=== PATIENT | male | born 1960 | race Caucasian/White ===

== ENCOUNTER 2016-09-17 08:57 | Day surgery (SDC) | payer MEDICAID ==
[2016-09-17 09:31] VITALS: BMI 22.2
[2016-09-17] MEDS ORDERED: Bupivacaine HCl 0.25% PF (10 ml) Inj ONE (10:29)
[2016-09-17] MEDS ORDERED: ceFAZolin 1 gm FROZEN Premix 50 ML IVPB ONE (10:29)
[2016-09-17] MEDS ORDERED: Propofol 10 mg/ml Inj (20 ML) ONE (12:18)
[2016-09-17] MEDS ORDERED: Lactated Ringer's 1,000 ML IV ONE (12:25)
[2016-09-17] MEDS ORDERED: Midazolam 2 MG/2 ML VIAL ONE (12:31)
[2016-09-17] MEDS ORDERED: Lidocaine 1% Inj (20ml) ONE (12:47)
[2016-09-17] MEDS ORDERED: Oxycodone/Acetaminophen 5/325 mg Tab PO PRN (13:26)
--- NOTE | 2016-09-17 14:02 | OP ---
PROCEDURE DATE: 09/17/2016 PREOPERATIVE DIAGNOSIS: Infected mass of right shoulder. POSTOPERATIVE DIAGNOSIS: Infected mass of right shoulder. PROCEDURE PERFORMED: Wide and deep excision of infected mass (5 cm) of right shoulder with adjacent tissue transfer closure greater than 30 cm. SURGEON: Nathan Harden MD ANESTHESIA: General endotracheal. ESTIMATED BLOOD LOSS: 25 mL. POSTOPERATIVE CONDITION: Stable. PROCEDURE: The patient taken to the operating room and placed in a prone position with the right arm extended. The right shoulder and scapular area were prepped and draped and 30 mL of local anesthesi a was administered. A generous elliptical incision was made surrounding the mass. It was dissected into the fascia and removed. Bleeding was controlled using the Bovie. A larger blood vessel was rep aired. The wound was irrigated with copious amounts of saline solution and generous tissue flaps wer e raised using the Bovie. A greater than 30 square cm adjacent tissue transfer closure was performed with multiple layers of heavy Vicryl, subcuticular Vicryl and glue. The patient tolerated the proce dure well, returned to recovery room in stable condition. Nathan Harden MD cc: [id number] TT: 09/17/2016 14:02:09 en
[2016-09-17 14:58] VITALS: RESP 18; TEMP 98; O2SAT 100
[2016-09-17 16:05] VITALS: BP 110/70; PULSE 80
== END 2016-09-17 15:30 | disposition home or self-care (01) ==
LOC: C.SDS 08:57
PROVIDERS: ATTEND Surgery
DX: L72.0 Epidermal cyst (principal)
CPT/HCPCS: 11406; 12037; 82948; 87070; 88307; J0690; J2250; J2704; J3010; J7120